=== PATIENT | male | born 1985 | race American Indian/Alaskan Native ===

== ENCOUNTER 2016-12-31 03:44 | Emergency (ER) | payer OTHER ==
[2016-12-31 04:03] VITALS: BP 125/94
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
== END 2016-12-31 05:15 | disposition home or self-care (01) ==
LOC: ED 03:44
DX: S01.81XA Laceration without foreign body of other part of head, initial encounter (principal); F17.200 Nicotine dependence, unspecified, uncomplicated; X58.XXXA Exposure to other specified factors, initial encounter; Y93.89 Activity, other specified; Y99.9 Unspecified external cause status; Y92.89 Other specified places as the place of occurrence of the external cause